=== PATIENT | female | born 2000 | race Caucasian/White ===

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

== ENCOUNTER 2023-11-05 12:16 | Emergency (ER) | payer OTHER ==
[2023-11-05] MEDS: LORazepam 1 MG Tab PO ONE (13:17)
[2023-11-05] MEDS: Sodium Chloride 0.9% 1,000 ML IV ONE (13:46)
[2023-11-05 14:00] LABS: BASOPHILS PERCENT AUTO 0.3 % (0.0-1.0); EOSINOPHILS PERCENT AUTO 0.2 % (0.0-6.0); HEMATOCRIT 39.3 % (37.0-47.0); HEMOGLOBIN 12.3 gm/dl (12.0-16.0); IMMATURE GRAN ABSOLUTE AUTO 0.03 K/mm3 (0.00-0.05); IMMATURE GRAN PERCENT AUTO 0.3 % (0.0-0.4); LYMPHOCYTES ABSOLUTE AUTO 2.9 K/mm3 (1.0-4.8); LYMPHOCYTES PERCENT AUTO 28.1 % (24.0-44.0); MEAN CORPUSCULAR HEMOGLOBIN 23.9 pg (28.0-32.0); MEAN CORPUSCULAR HGB CONC 31.3 g/dl (32.0-36.0); MEAN CORPUSCULAR VOLUME 76.5 fl (83.0-99.0); MEAN PLATELET VOLUME 8.9 fl (9.4-12.3); MONOCYTES ABSOLUTE AUTO 0.6 K/mm3 (0.0-0.8); MONOCYTES PERCENT AUTO 5.9 % (0.0-8.0); NEUTROPHILS ABSOLUTE AUTO 6.8 K/mm3 (1.8-7.7); NEUTROPHILS PERCENT AUTO 65.2 % (41.0-71.0); PLATELET COUNT,PLT 440 K/mm3 (150-400); RED BLOOD CELL COUNT 5.14 M/mm3 (4.10-5.30); WHITE BLOOD CELL COUNT,WBC 10.38 K/mm3 (3.9-11.3)
[2023-11-05 14:23] LABS: A/G RATIO 1.1 (1-2); ALBUMIN 4.6 g/dl (3.4-5.0); ANION GAP 15.6 (5-15); BILIRUBIN TOTAL 0.6 mg/dL (0.2-1.0); CALCIUM 9.8 mg/dL (8.5-10.1); EST CRCL DRUG DOSING (CG) 76.2 mL/min; MAGNESIUM 1.7 mg/dL (1.8-2.4); POTASSIUM,K 3.6 mEq/L (3.5-5.1)
== END 2023-11-05 15:46 | disposition home or self-care (01) ==
LOC: JD.ED 12:16
DX: R06.4 Hyperventilation (principal); Z88.8 Allergy status to other drugs, medicaments and biological substances; Z88.1 Allergy status to other antibiotic agents
CPT/HCPCS: 36415; 80053; 82947; 83735; 85025; 96360; 99284; A9270; J7030; 99283